=== PATIENT | female | born 2000 | race Caucasian/White ===

== ENCOUNTER 2023-11-28 12:00 | Outpatient (REF) | payer BC, SELFPAY ==
--- NOTE | 2023-11-28 10:30 | PAPFT_PTH ---
PATIENT: Tawanda Ramesh LOC: [facility] U#:[id number] AGE/SX: 23/F ROOM: RE11/28/[address]: Shaista Bennett NP : 2000 BED: DIS: 11/28/2023 SPEC #: [id number] RECD: 11/28/23 13:21 STATUS: PRIYANK REQ #: [id number] PRIYANKA: 11/28/23 10:[address]: Sabrina GUTIERREZ,Shaista DEPT: [facility] Cytology RECD BY: Marely Puente ENTERED: 11/28/23 13:22 SP TYPE: PAPFT OTHR DR: Unknown,Unknown Tissues: 1 - CX/ENDOCX FOR PAP SMEARS Procedures: PAP THIN PREP/[facility] Screening HPV DNA PROBE Comments: [id number] (HPV 16 & 18/45)
== END 2023-11-28 12:01 | disposition home or self-care (01) ==
LOC: LBN 12:00
PROVIDERS: Visit Provider Nurse Practitioner Women's Health
DX: Z30.430 Encounter for insertion of intrauterine contraceptive device (principal); Z12.4 Encounter for screening for malignant neoplasm of cervix
CPT/HCPCS: 88142; 87624